=== PATIENT | female | born 1940 | race Caucasian/White ===

== ENCOUNTER 2017-01-18 14:57 | Emergency (ER) | payer MEDICARE ==
[2017-01-18] MEDS ORDERED: Sodium Chloride 0.9% 1000 ML 1,000 ML IV SCH (15:15)
[2017-01-18] MEDS ORDERED: Sodium Chloride 0.9% 1000 ML 1,000 ML ONE (15:21)
[2017-01-18 15:41] LABS: BASOPHIL % 0.2 % (0.0-0.4); Eosinophil % 6.9 % (0.00-5.0); Granulocytes % 62.5 % (36.0-66.0); Lymphocytes % 20.9 % (24.0-44.0); Mean Corpuscular Hemoglobin 28.9 pg (26-32); Mean Platelet Volume 10.2 fl (6-9.5); Monocytes % 9.5 % (0.0-12.0); Platelet Count 199 K/mm3 (150-450); Red Blood Count 4.99 M/mm3 (4.1-5.4); Red Cell Distribution Width 13.6 % (11.5-14.0); White Blood Count 5.7 K/mm3 (4.0-10.5)
--- NOTE | 2017-01-18 15:42 | ERPHSYRPT ---
- History of Present Illness Time Seen by Provider: 01/18/17 15:40 Source: patient, family Patient Subjective Stated Complaint: PT HERE VIA AMBULANCE FOR LOW B/P AND LOW O2 SAT AND NOT WALKING WELL TODAY, Triage Nursing Assessment: PT ALERT, MENATALLY DISABLED,PT RESP EASY, CHEST CLEAR, ABD SOFT, SKIN W/D PINK. NOT DRINKING WELL Timing/Duration: today Associated Symptoms: loss of appetite Allergies/Adverse Reactions: aspirin Allergy (Mild, Verified 01/18/17 15:10) Swelling atropine sulfate [From Lomotil] Allergy (Verified 01/18/17 15:10) Swelling dextromethorphan HBr [From Delsym] Allergy (Verified 01/18/17 15:10) Swelling diphenoxylate HCl [From Lomotil] Allergy (Verified 01/18/17 15:10) Swelling epinephrine Allergy (Verified 01/18/17 15:10) Swelling lisinopril Allergy (Verified 01/18/17 15:10) Swelling phenytoin Allergy (Verified 01/18/17 15:10) Swelling tolterodine tartrate [From Detrol] Allergy (Verified 01/18/17 15:10) Swelling Home Medications: Clonazepam 0.5 mg [Klonopin 0.5 MG] 1 mg PO DAILY 09/27/14 [History] Diltiazem HCl 240 mg [Cardizem CD 240 MG] 240 mg PO DAILY 09/27/14 [ History] Escitalopram Oxalate [Lexapro] 20 mg PO QPM 09/27/14 [History] Furosemide [Lasix] 40 mg PO DAILY 09/27/14 [History] Levetiracetam [Keppra] 750 mg PO BID 09/27/14 [History] Levothyroxine Sodium 50 Mcg [Synthroid 50 Mcg] 50 mcg PO DAILY 09/27/14 [ History] Nystatin/Triamcin 15 gm Oint [Nystatin-Triamcinolone Ointm] 15 gm TP DAILY PRN PRN 09/27/14 [History] Oxybutynin Chloride Xl 5 mg [Ditropan XL 5 MG] 5 mg PO BID 09/27/14 [ History] Potassium Chloride 10 Meq Tab* [Klor Con 10 MEQ] 20 meq PO DAILY 09/27/14 [ History] Hx Tetanus, Diphtheria Vaccination/Date Given: No Hx Influenza Vaccination/Date Given: No Hx Pneumococcal Vaccination/Date Given: Yes Immunizations Up to Date: Yes - Review of Systems Constitutional: Lethargy, Weakness, No Fever, No Chills Eyes: No Symptoms Ears, Nose, & Throat: No Symptoms Respiratory: No Cough, No Dyspnea Cardiac: No Chest Pain, No Edema, No Syncope Abdominal/Gastrointestinal: No Abdominal Pain, No Nausea, No Vomiting, No Diarrhea Genitourinary Symptoms: No Dysuria Musculoskeletal: No Back Pain, No Neck Pain Skin: No Rash Neurological: No Dizziness, No Focal Weakness, No Sensory Changes Psychological: No Symptoms Endocrine: No Symptoms All Other Systems: Reviewed and Negative - Past Medical History Pertinent Past Medical History: Yes Neurological History: Seizures, Other ENT History: No Pertinent History Cardiac History: No Pertinent History Respiratory History: COPD Endocrine Medical History: Hypothyroidism Musculoskeletal History: Other GI Medical History: No Pertinent History History: Other Psycho-Social History: Anxiety, Depression - Past Surgical History Past Surgical History: No - Social History Smoking Status: Never smoker Exposure to second hand smoke: Yes Drug Use: none Patient Lives Alone: No - Female History Hx Last Menstrual Period: POST - Nursing Vital Signs Nursing Vital Signs: Initial Vital Signs Temperature 97.8 F 01/18/17 14:58 Pulse Rate 72 01/18/17 14:58 Respiratory Rate 22 01/18/17 14:58 Blood Pressure 156/66 01/18/17 14:58 O2 Sat by Pulse Oximetry 90 L 01/18/17 14:58 Pain Scale Pain Intensity 0 - Physical Exam General Appearance: no apparent distress, alert Eye Exam: PERRL/EOMI, eyes nml inspection Ears, Nose, Throat Exam: normal ENT inspection, TMs normal, pharynx normal, moist mucous membranes Neck Exam: normal inspection, non-tender, supple, full range of motion Respiratory Exam: normal breath sounds, lungs clear, No respiratory distress Cardiovascular Exam: regular rate/rhythm, normal heart sounds, normal peripheral pulses Gastrointestinal/Abdomen Exam: soft, normal bowel sounds, No tenderness, No mass Back Exam: normal inspection, normal range of motion, No CVA tenderness, No vertebral tenderness Extremity Exam: normal inspection, normal range of motion, pelvis stable Neurologic Exam: alert, oriented x 3, cooperative, normal mood/affect, nml cerebellar function, nml station & gait, sensation nml, No motor deficits Skin Exam: normal color, warm, dry, No rash Lymphatic Exam: No adenopathy SpO2: 99 Oxygen Delivery: Nasal Cannula - Course Nursing assessment & vital signs reviewed: Yes Ordered Tests: Active Orders 24 hr Category Date Time Status Nut Culler STAT Care 01/18/17 15:04 Active Oxygen-ED Only NASAL CANNULA 3 lpm Care 01/18/17 15:06 Active Pulse Oximetry (ED) STAT Care 01/18/17 15:04 Active Saline Lock STAT Care 01/18/17 15:04 Active cath [Cath for Specimen-Straight] STAT Care 01/18/17 16:13 Active CHEST 1 VIEW (PORTABLE) Stat Exams 01/18/17 15:05 Taken BLOOD CULTURE Stat Lab 01/18/17 15:30 Received CBC W DIFF Stat Lab 01/18/17 15:25 Completed CMP Stat Lab 01/18/17 15:25 Completed CULTURE,URINE Stat Lab 01/18/17 15:04 Ordered Lactic Acid Stat Lab 01/18/17 15:25 Completed PROTIME WITH INR Stat Lab 01/18/17 15:25 Completed PTT Stat Lab 01/18/17 15:25 Completed UA W/ MICROSCOPIC Stat Lab 01/18/17 16:00 Completed Medication Summary Generic Name Dose Route Start Last Admin Trade Name Salvador PRN Reason Stop Dose Admin Sodium Chloride 1,000 mls @ 100 mls/hr 01/18/17 15:15 01/18/17 15:22 Sodium Chloride 0.9% 1000 Ml IV 02/17/17 15:14 100 mls/hr .Q10H NABILA Administration Ceftriaxone Sodium/Dextrose 1 g in 50 mls @ 100 mls/hr 01/18/17 16:24 Rocephin 1 Gm-D5w 50 Ml Bag IV 01/18/17 16:53 STAT STA Lab/Rad Data: Laboratory Result Diagrams 01/18/17 15:25 01/18/17 15:25 Laboratory Results 01/18/17 01/18/17 01/18/17 Range/Units 16:00 15:25 15:25 WBC (4.0-10.5) K/mm3 RBC (4.1-5.4) M/mm3 Hgb (12.0-16.0) gm/dl Hct (35-47) % MCV (78-100) fl MCH (26-32) pg MCHC (32-36) g/dl RDW (11.5-14.0) % Plt Count (150-450) K/mm3 MPV (6-9.5) fl Gran % (36.0-66.0) % Lymphocytes % (24.0-44.0) % Monocytes % (0.0-12.0) % Eosinophils % (0.00-5.0) % Basophils % (0.0-0.4) % Basophils # (0-0.4) INR 1.04 (0.8-3.0) APTT 22.6 L (25.3-37.0) SECONDS Sodium 142 (136-145) mEq/L Potassium 4.6 (3.5-5.1) mEq/L Chloride 104 (98-107) mEq/L Carbon Dioxide 32.1 H (21-32) mEq/L Anion Gap 10.8 (5-15) MEQ/L BUN 21 H (9-20) mg/dL Creatinine 1.14 (0.55-1.30) mg/dl Estimated GFR 50 ML/MIN Glucose 103 (70-110) MG/DL Lactic Acid (0.4-2.0) Calcium 8.7 (8.5-10.1) mg/dL Total Bilirubin 0.40 (0.2-1.0) mg/dL AST 14 L (15-37) U/L ALT 18 (12-78) U/L Alkaline Phosphatase 244 H (46-116) U/L Serum Total Protein 6.5 (6.4-8.2) gm/dL Albumin 3.2 L (3.4-5.0) g/dL Ur Collection Type CATH Urine Color YELLOW (YELLOW) Urine Appearance CLOUDY (CLEAR) Urine pH 5.0 (5-6) Ur Specific [place] 1.015 (1.005-1.025) Urine Protein TRACE (Negative) Urine Ketones NEGATIVE (NEGATIVE) Urine Blood SMALL (0-5) Jackson/ul Urine Nitrite POSITIVE (NEGATIVE) Urine Bilirubin NEGATIVE (NEGATIVE) Urine Urobilinogen NORMAL (0-1) mg/dL Ur Leukocyte Esterase 2+ (NEGATIVE) Urine Microscopic RBC 2-5 (0-2) /HPF Urine Microscopic WBC >100 (0-5) /HPF Ur Epithelial Cells FEW (FEW) /HPF Urine Bacteria MANY (NEGATIVE) /HPF Urine Glucose NEGATIVE (NEGATIVE) mg/dL Specimen Received 01/18/2017 1605 01/18/17 01/18/17 Range/Units 15:25 15:25 WBC 5.7 (4.0-10.5) K/mm3 RBC 4.99 (4.1-5.4) M/mm3 Hgb 14.4 (12.0-16.0) gm/dl Hct 46.9 (35-47) % MCV 94.0 (78-100) fl MCH 28.9 (26-32) pg MCHC 30.7 L (32-36) g/dl RDW 13.6 (11.5-14.0) % Plt Count 199 (150-450) K/mm3 MPV 10.2 H (6-9.5) fl Gran % 62.5 (36.0-66.0) % Lymphocytes % 20.9 L (24.0-44.0) % Monocytes % 9.5 (0.0-12.0) % Eosinophils % 6.9 H (0.00-5.0) % Basophils % 0.2 (0.0-0.4) % Basophils # 0.01 (0-0.4) INR (0.8-3.0) APTT (25.3-37.0) SECONDS Sodium (136-145) mEq/L Potassium (3.5-5.1) mEq/L Chloride (98-107) mEq/L Carbon Dioxide (21-32) mEq/L Anion Gap (5-15) MEQ/L BUN (9-20) mg/dL Creatinine (0.55-1.30) mg/dl Estimated GFR ML/MIN Glucose (70-110) MG/DL Lactic Acid 1.2 (0.4-2.0) Calcium (8.5-10.1) mg/dL Total Bilirubin (0.2-1.0) mg/dL AST (15-37) U/L ALT (12-78) U/L Alkaline Phosphatase (46-116) U/L Serum Total Protein (6.4-8.2) gm/dL Albumin (3.4-5.0) g/dL Ur Collection Type Urine Color (YELLOW) Urine Appearance (CLEAR) Urine pH (5-6) Ur Specific [place] (1.005-1.025) Urine Protein (Negative) Urine Ketones (NEGATIVE) Urine Blood (0-5) Jackson/ul Urine Nitrite (NEGATIVE) Urine Bilirubin (NEGATIVE) Urine Urobilinogen (0-1) mg/dL Ur Leukocyte Esterase (NEGATIVE) Urine Microscopic RBC (0-2) /HPF Urine Microscopic WBC (0-5) /HPF Ur Epithelial Cells (FEW) /HPF Urine Bacteria (NEGATIVE) /HPF Urine Glucose (NEGATIVE) mg/dL Specimen Received - Progress Progress: improved Counseled pt/family regarding: lab results, diagnosis, need for follow-up, rad results - Departure Time of Disposition: 16:27 Departure Disposition: Home Clinical Impression: UTI (urinary tract infection) Qualifiers: Urinary tract infection type: acute pyelonephritis Qualified Code(s): N10 - Acute pyelonephritis Condition: Stable Critical Care Time: Yes Critical Care Time(excluding separately billable procedures): 30-74 minutes Referrals: STAR TREVINO MD [Primary Care Provider] - Instructions: Urinary Tract Infection (UTI) Additional Instructions: URINARY TRACT INFECTION 1. You will need to drink plenty of fluids in order to keep your urinary system flushed. These fluids should mainly consist of water and juices. 2. Take medications as directed. You need to completely finish any antiobiotic prescription given. 3. Try to avoid coffee, tea, alcohol, and seasoned foods as they may cause bladder irritation. 4. If signs and symptoms persist after 3-4 days, you will need to follow up with your family physician. 5. Female Patients: A. Avoid intercourse for 3-4 days. B. Empty bladder before and after intercourse to reduce risk of re- infection. C. After emptying bladder, wipe from front to back to reduce the risk of re- infection. Please follow the instructions given to you. Please take your medication as prescribed if given. If symptoms recur or get worse, come back to the emergency room if you cannot reach your primary care physician, or call your primary care physician for an appointment. Again if your symptoms get worse, come back to the emergency room. Thanks for visiting emergency room, and let us take care of you. Prescriptions: Ciprofloxacin [Cipro 500 MG] 500 mg PO BIDAC #20 tablet
[2017-01-18 15:57] LABS: INR 1.04 (0.8-3.0); PROTIME 11.6 SECONDS (9.95-12.35)
[2017-01-18 15:58] LABS: ALBUMIN 3.2 g/dL (3.4-5.0); ANION GAP 10.8 MEQ/L (5-15); BILIRUBIN,TOTAL 0.4 mg/dL (0.2-1.0); Carbon Dioxide 32.1 mEq/L (21-32); Potassium 4.6 mEq/L (3.5-5.1); Total Protein 6.5 gm/dL (6.4-8.2)
[2017-01-18 15:59] LABS: PTT 22.6 SECONDS (25.3-37.0)
[2017-01-18 16:15] LABS: Bilirubin NEGATIVE (NEGATIVE); Blood SMALL Ery/ul (0-5); COMPLETE URINE MICROSCOPIC? YES; Collection Type CATH; Glucose NEGATIVE (NEGATIVE); Leukocyte Esterase 2+ (NEGATIVE)
[2017-01-18 16:21] LABS: Epithelial Cells FEW /HPF (FEW); WBC >100 /HPF (0-5)
[2017-01-18 16:22] LABS: Bacteria MANY /HPF (NEGATIVE)
[2017-01-18] MEDS ORDERED: ROCEPHIN 1 Gm-D5w 50 ml Bag** 1 G/50 ML IVPB IV STA (16:24)
[2017-01-18] MEDS ORDERED: ROCEPHIN 1 Gm-D5w 50 ml Bag** 1 G/50 ML IVPB IV ONE (16:31)
[2017-01-18 17:06] VITALS: BP 144/73; PULSE 72; O2SAT 99
--- NOTE | 2017-01-18 19:39 | XRAY ---
Indication: Low blood pressure. Possible sepsis. Comparison: September 27, 2014. Portable chest remains underinflated without focal infiltrate, consolidation, or large effusion. Heart is still within normal limits for AP portable technique. Bony thorax intact again with osteopenia, degenerative changes, and old right humeral neck fracture. Impression: Stable nonacute underinflated chest with chronic features.
== END 2017-01-18 17:11 | disposition home or self-care (01) ==
LOC: ED 14:57
DX: N10 Acute pyelonephritis (principal)
CPT/HCPCS: 93041; 96365; 99284; 96360; 96361; 87040; 81000; 85610; 85730; 36415; 85025; 80053; 87086; 71010; 83605; P9612; 87077; 87186; J0696